=== PATIENT | female | born 1965 | race Caucasian/White ===

== ENCOUNTER → 2016-05-19 | Outpatient (CLI) | payer BC ==
[~2016-05-19] MED LIST: ALEVE 220MG220 MG PO; CELEXA10 MG PO; CLEOCIN HCL300 MG PO; NORCO 325 MG-51 TAB PO; ZOFRAN 4MG T4 MG/TAB PO; ZOFRAN ODT4 MG PO
== END ==
LOC: ZCOL.LAB 19:12
DX: L05.01 Pilonidal cyst with abscess (principal)

== ENCOUNTER 2016-06-16 08:40 | Day surgery (SDC) | payer BC ==
[~2016-06-16] VITALS: Ht 162.6 cm; Wt 62.3 kg
[~2016-06-16 08:40] MED LIST changes: -ALEVE 220MG220 MG PO; -CLEOCIN HCL300 MG PO; -NORCO 325 MG-51 TAB PO; -ZOFRAN ODT4 MG PO
[2016-06-16 09:28] VITALS: BP 110/67; PULSE 71; TEMP 97.6
[2016-06-16] MEDS ORDERED: ALEVE 220MG220 MG PO (09:31)
[2016-06-16 10:16] VITALS: BP 96/72; PULSE 86; TEMP 97.6
[2016-06-16 10:31] VITALS: BP 95/58; PULSE 64
[2016-06-16] MEDS ORDERED: NORCO 325 MG-51 TAB PO (10:35)
[2016-06-16] MEDS ORDERED: ZOFRAN ODT4 MG PO (10:35)
[2016-06-16] MEDS ORDERED: CLEOCIN HCL300 MG PO ×2 (10:36→10:37)
[2016-06-16 10:46] VITALS: BP 92/56; PULSE 58
[2016-06-16 11:01] VITALS: BP 94/52; PULSE 70
[2016-06-16 11:31] VITALS: BP 104/62; PULSE 88
== END 2016-06-16 13:25 | disposition home or self-care (01) ==
LOC: SDCO 08:40
DX: L72.3 Sebaceous cyst (principal)
CPT/HCPCS: J0690; J1100; J1885; J2250; J2405; J2704; J2765; J3010; J7120

== ENCOUNTER → 2017-04-22 | Outpatient (CLI) | payer BC ==
[~2017-04-22] MED LIST changes: +ALEVE 220MG220 MG PO; +CLEOCIN HCL300 MG PO; +NORCO 325 MG-51 TAB PO; +ZOFRAN ODT4 MG PO
== END ==
LOC: MC.RAD 10:49
DX: Z12.31 Encounter for screening mammogram for malignant neoplasm of breast (principal); N63.10 Unspecified lump in the right breast, unspecified quadrant; N60.01 Solitary cyst of right breast; N64.89 Other specified disorders of breast

== ENCOUNTER → 2017-05-07 | Outpatient (CLI) | payer BC | LOC: COL.RAD 13:41 | DX: R51 Headache (principal) ==

== ENCOUNTER → 2018-05-05 | Outpatient (CLI) | payer BC | LOC: MC.RAD 08:40 | DX: Z12.31 Encounter for screening mammogram for malignant neoplasm of breast (principal); N60.02 Solitary cyst of left breast; N60.01 Solitary cyst of right breast ==

== ENCOUNTER → 2018-07-15 | Outpatient (CLI) | payer BC | LOC: MC.RAD 09:28 | DX: N60.01 Solitary cyst of right breast (principal); N60.11 Diffuse cystic mastopathy of right breast ==

== ENCOUNTER → 2019-05-30 | Outpatient (CLI) | payer BC | LOC: COL.RAD 11:38 | DX: N39.44 Nocturnal enuresis (principal) ==

== ENCOUNTER → 2019-07-06 | Outpatient (CLI) | payer BC | LOC: MC.RAD 11:03 | DX: Z12.31 Encounter for screening mammogram for malignant neoplasm of breast (principal) ==

== ENCOUNTER → 2020-07-25 | Outpatient (CLI) | payer BC | LOC: MC.RAD 16:18 | DX: Z12.31 Encounter for screening mammogram for malignant neoplasm of breast (principal) ==

== ENCOUNTER → 2021-10-29 | Outpatient (CLI) | payer BC | LOC: MC.RAD 08:34 | DX: Z12.31 Encounter for screening mammogram for malignant neoplasm of breast (principal); N64.89 Other specified disorders of breast ==

== ENCOUNTER → 2021-10-30 | Outpatient (CLI) | payer BC | LOC: MC.RAD 14:05 | DX: N64.89 Other specified disorders of breast (principal) ==

== ENCOUNTER → 2023-12-15 | Outpatient (CLI) | payer BC | LOC: MC.RAD 10:47 | DX: Z12.31 Encounter for screening mammogram for malignant neoplasm of breast (principal) ==